=== PATIENT | female | born 2005 | race African-American/Black ===

== ENCOUNTER 2025-09-06 11:27 | Emergency (ER) | payer BC, SELFPAY ==
[2025-09-06 11:29] VITALS: BP 129/83
--- NOTE | 2025-09-06 12:32 | ED.GENMED ---
History of Present Illness
General
Chief Complaint: Cold/Flu/URI Symptoms
Source: patient
Exam Limitations: none
Time Seen by Provider: 09/06/25 11:57
History of Present Illness
History of Present Illness:
20yoF with a history of anxiety presenting with her parents for evaluation of flu-like symptoms. She initially started with a cough 5 days ago. She is now experiencing malaise, sore throat, significant body aches, and vomiting. She has been
unable to keep anything down and feels very dehydrated. Tmax 99.6. She initially had diarrhea but stool today was more formed. She took a home flu test was positive. She has lost 4 pounds since symptoms began. She is feeling worse and parents
decided to bring her to the ED for evaluation. She denies any shortness of breath or abdominal pain. She is currently on day 2 of her menses.
Past History
Social History
Tobacco: Non-smoker
Phy Exam
General Physical Exam
General Presentation: well appearing and no apparent distress
General Skin: warm and dry
General Habitus: normal
General Mental: alert
ENT Exam
ENT Exam: TM's normal, pharynx normal, neck supple and normocephalic
Cardiovascular Exam
Cardiovascular Exam: regular rate/rhythm
Pulmonary Exam
Pulmonary Exam: lungs clear, no respiratory distress, no rales, no crackles, no rhonchi and no wheezing
Gastrointestinal Exam
Gastrointestinal Exam: non tender, soft and non distended
Neurological Exam
Neurological Exam: alert
Jorje Coma Scale
Eye Opening: Spontaneous
Verbal Response: Oriented
Motor Response: Obeys Commands
GCS Total Score: 15
Skin Exam
Skin Exam: normal color and warm/dry
Psychiatric Exam
Psychiatric Exam: normal mood/affect
Course
Orders/Labs/Results
Orders:
Orders
09/06/25 12:29
0.9% Sodium Chloride 1000 ml [Nss] 1,000 ml IV BOLUS
Ketorolac [Toradol] 15 mg IV NOW STA
Ondansetron Injectable [Zofran] 4 mg IV NOW STA
Test Result ONCE
09/06/25 12:31
CR Chest - 2 Views Urgent
Comment:
Reason For Exam: cough
09/06/25 12:50
COVID-19 Antigen Urgent
Source: Nasal Swab
Complete Blood Count/With Diff Urgent
Comprehensive Metabolic Panel Urgent
HCG, Serum Qualitative Screen Urgent
Urinalysis Reflex To Culture Urgent
Date Specimen was Collected: 09/06/25
Time Specimen was Collected: 12:47
Urine Microscopic Reflex Cult Urgent
Influenza A+B Rapid Molecular Urgent
GAL Source: Nasal Swab
Specimen Description:
Urine Culture Urgent
GAL Source: U
Specimen Description:
Date Specimen was Collected: 09/06/25
Time Specimen was Collected: 12:47
09/06/25 14:[address] Non Medication Order As Directed
Physician Order: PO challenge
Above order entered?: Yes
Abnormal Lab Results
09/06/25
12:50
WBC 2.4 L* 10^3/uL
(4.8-10.8)
MCV 78.2 L fL
(81.0-99.0)
MCH 26.3 L pg
(27.0-31.0)
Absolute Lymphs (auto) 0.5 L 10^3/uL
(1.2-3.4)
Lymphocytes % 20.1 L %
(20.5-51.1)
Monocytes % 12.3 H %
(1.7-9.3)
Total Bilirubin < 0.1 L mg/dl
(0.2-1.3)
Urine Ketones 1+ A
(Negative)
Ur Occult Blood Reflex 4+ A
(Negative)
Leukocyte Esterase Rfl 1+ A
(Negative)
Urine RBC >100 A /HPF
(0-2)
Urine Bacteria (Reflex) Few A
(Negative)
Urine Albumin (Reflex) 3+ A
(Neg - Trace)
09/06/25 12:50
09/06/25 12:50
Vital Signs
Initial and Last Documented VS:
Initial Vital Signs
Temp Pulse Resp BP Pulse Ox
98.4 F 85 18 129/83 99
09/06/25 11:29 09/06/25 11:29 09/06/25 11:29 09/06/25 11:29 09/06/25 11:29
Last Documented Vital Signs
Temp Pulse Resp BP Pulse Ox
98.4 F 62 16 128/79 100
09/06/25 11:29 09/06/25 15:14 09/06/25 15:14 09/06/25 15:14 09/06/25 15:14
MDM/Problems Addressed
Differential Diagnosis Includes:
20yoF here with flu-like symptoms including body aches and vomiting. Home flu test positive. Has been unable to tolerate PO intake. VSS. Patient well appearing in no distress. Differential diagnosis includes: influenza, other viral illness,
dehydration
Initial ED plan: Check CBC, CMP, HCG, COVID/flu testing, UA, and CXR. IV Zofran, Toradol, and fluid bolus for symptoms.
*Pulse Oximetry
SaO2: 99
Oxygen Mode of Delivery: Room air
Patient hypoxic: no
*Critical Care Note
Total Time (30-74mins, 75-104mins- exclusive of procedures): Not Applicable
Update Note
Update Note:
Patient positive for influenza A. Labs reveal a leukopenia with a white count of 2.4. She has a history of leukopenia and white count was 2.8 back in 2020. Remainder of labs unremarkable including normal electrolytes and renal function. UA with
4+ blood although she is currently on her menses. Patient feeling significantly improved on reassessment and was able to tolerate p.o. fluids. She is stable for discharge. Prescription for Zofran provided and supportive care reviewed. She was
advised to follow-up with her PCP and ED return precautions discussed. Parents in agreement with plan and she was discharged in stable condition.
After patient discharge, radiology interpreted chest x-ray with a faint left lower lobe infiltrate that was not seen on my preliminary read. I called the patient to notify her of this and a prescription for doxycycline was sent to the pharmacy for
completeness.
ED Attending Note
-
Portions of this chart may have been created with voice recognition software.� Occasional wrong word or��sound alike� substitutions may have occurred due to the inherent limitations of voice recognition software.
Discharge Plan
Departure
Patient Disposition: Home (Routine Discharge)
Date of Disposition: 09/06/25
Time of Disposition: 15:03
Patient with high blood pressure during this ER visit?: No
Discharge Problem:
Influenza A, Nausea and vomiting
Instructions: Flu in adults - ED (DC)
Prescriptions:
New
ondansetron 4 mg tablet,disintegrating
4 mg PO Q6H PRN (Reason: nausea and vomiting) Qty: 20 0RF
doxycycline hyclate 100 mg capsule
100 mg PO BID Qty: 14 0RF
No Action
ondansetron 4 MG tablet,disintegrating
4 mg PO DAILYPRN PRN (Reason: nausea/vomiting) Qty: 14 0RF
Referrals:
Lucia Sandoval CRNP [Family Provider, Family Practice]
Activity Restrictions/Additional Instructions:
Take Zofran as needed for nausea. Drink plenty of fluids and stay hydrated. Eat a bland diet (bananas, rice, applesauce, toast). Take Tylenol and ibuprofen as needed for body aches.
Please follow-up with your family doctor. Return to the ER with any new or worsening symptoms including if you are unable to keep down any fluids.
Interventions
Interventions:
*General Assessment Last Done: 09/06/25 11:37
*Neglect/Abuse Screening Last Done: 09/06/25 11:37
*ED COVID-19 Vaccine History Last Done: 09/06/25 11:29
*ED Influenza Vaccine History Last Done: 09/06/25 11:29
[facility] Risk Assessment Tool Last Done: 09/06/25 11:37
*Risk Screen - Suicide (C-SSRS) Last Done: 09/06/25 11:29
*Nursing Disposition Last Done: 09/06/25 15:10
ED- Pulmonary Assessment Last Done: 09/06/25 11:37
Discharge Date and Time
Discharge Date/Time: 09/06/25 15:11
Print Language: TELUGU
[2025-09-06] MEDS: ZOFRAN 4 MG IV (13:03)
[2025-09-06] MEDS: TORADOL 15 MG IV (13:03)
[2025-09-06] MEDS: NSS 1000 IV (13:03)
[2025-09-06 13:30] LABS: HCG, Serum Qualitative Screen Negative
[2025-09-06 13:37] LABS: COVID-19 Antigen Negative (Negative)
[2025-09-06 13:41] LABS: Hematocrit 38.1 % (37.0-47.0); Hemoglobin 12.8 g/dL (12.0-16.0); Mean Corp Hgb Conc. 33.6 g/dL (33.0-37.0); Mean Corpuscular Volume 78.2 fL (81.0-99.0); Nucleated Red Blood Cells % 0 %; Platelet Count 143 10^3/uL (130-400); Red Cell Dist. Width 13.8 % (11.5-14.5)
[2025-09-06 13:44] LABS: Urine Character Cloudy (Clear)
[2025-09-06 13:54] LABS: ALT (SGPT) 20 U/L (0-35); AST (SGOT) 29 U/L (14-36); Albumin 4.4 g/dl (3.5-5.0); Alkaline Phosphatase 71 U/L (38-126); Blood Urea Nitrogen 9 mg/dl (7-17); Calcium 9.0 mg/dl (8.4-10.2); Carbon Dioxide 24 mmol/L (22-30); Chloride 104 mmol/L (98-107); Glucose 91 mg/dl (70-99); Potassium 3.9 mmol/L (3.5-5.1); Sodium 139 mmol/L (135-145); Total Protein 7.4 g/dl (6.3-8.2); eGFR > 60.00
[2025-09-06 14:07] LABS: Urine Red Blood Cell >100 /HPF (0-2); Urine Squamous Cell 0-2 /LPF (Few); Urine White Cell 0-2 /HPF (0-5)
[2025-09-06 15:14] VITALS: BP 128/79
== END 2025-09-06 15:11 | disposition home or self-care (01) ==
LOC: EMR 11:27
PROVIDERS: Physician Assistant; EMERGENCY PHYSICIAN Emergency Medicine; FAMILY PHYSICIAN Nurse Practitioner
DX: J10.1 Influenza due to other identified influenza virus with other respiratory manifestations (principal)
CPT/HCPCS: 99284; 96374; 96375; 96361; 71046; 80053; 81003; 81015; 84703; 85025; 87086; 87502; 87811